=== PATIENT | male | born 1960 | race Caucasian/White ===

== ENCOUNTER 2019-10-10 10:34 | Outpatient (CLI) | payer MEDICARE, OTHER, SELFPAY ==
[2019-10-10 12:03] LABS: Hepatitis B Surface Antigen Negative (Negative)
[2019-10-10 12:20] LABS: Hepatitis B Surface Anti Res Negative; Hepatitis C Virus Antibody Negative (Negative)
[2019-10-11 17:24] LABS: Hepatitis B DNA PCR <1.00 Log IU/mL; Hepatitis B DNA PCR <10 IU/mL
[2019-10-11 18:47] LABS: Hepatitis C RNA, Quant PCR <15 IU/mL
[2019-10-12 02:47] LABS: Hepatitis B Core Ab Total Nonreactive (Nonreactive)
[2019-10-13 11:58] LABS: NIL 0.02 IU/mL; Quantiferon TB Plus, 1T NEGATIVE (NEGATIVE)
== END 2019-10-10 10:35 | disposition home or self-care (01) ==
LOC: ANHLAB 10:41
PROVIDERS: Visit Provider Internal Medicine Rheumatology
DX: Z11.59 Encounter for screening for other viral diseases (principal)
CPT/HCPCS: 36415; 86480; 86704; 86706; 86803; 87340; 87517; 87522

== ENCOUNTER 2019-10-26 12:22 | Outpatient (RCR) | payer MEDICARE, OTHER, SELFPAY ==
[2019-10-26 13:22] LABS: Erythrocyte Sedimentation Rate > 140 mm/hr (0-20)
[2019-10-26 13:23] LABS: Hemoglobin 14.4 g/dL (14.0-18.0); Mean Corpuscular HGB Conc 32.7 g/dl (32-36); Mean Corpuscular Volume 88.5 fl (80-100); Mean Platelet Volume 10.5 fl (7.4-10.4); Platelet Count Result 234 k/mm3 (150-375); Red Blood Count 4.97 M/mm3 (4.6-6.20); Red Cell Distribution Width 13.2 % (11.5-14.5); White Blood Count 4.5 K/mm3 (4.5-10.0)
[2019-10-26 13:30] LABS: Alanine Aminotransferase 37 U/L (4-50); Albumin Level 4.1 g/dL (3.5-5.1); Alkaline Phosphatase 105 U/L (38-126); Aspartate Amino Transferase 44 U/L (17-59); Bilirubin,Total 0.3 mg/dL (0.2-1.3); Blood Urea Nitrogen 18 mg/dL (9-20); CRP < 0.5 mg/dL (<1.0); Calcium 9.6 mg/dL (8.4-10.2); Carbon Dioxide 28 mmol/L (22-30); Chloride 102 mmol/L (98-107); Estimated Glomerular Filt Rate > 60; Glucose 90 mg/dL (75-110); Potassium 4.4 mmol/L (3.4-5.0); Sodium 139 mmol/L (137-145)
[2019-10-26 13:36] LABS: Complement C3 116 mg/dL (88-165)
[2019-10-29 10:29] LABS: Complement Total CH50 >60 U/mL (31-60)
[2019-10-31 20:27] LABS: SS-A <1.0; SS-B <1.0
[2019-11-02 02:21] LABS: Cryoglobulin, QL Negative (Negative)
== END 2020-01-24 23:59 | disposition home or self-care (01) ==
LOC: ANHLAB 12:22
PROVIDERS: Visit Provider Internal Medicine Rheumatology
DX: Z51.81 Encounter for therapeutic drug level monitoring (principal); I77.6 Arteritis, unspecified; M35.00 Sjogren syndrome, unspecified; Z79.899 Other long term (current) drug therapy
CPT/HCPCS: 36415; 80048; 80076; 82595; 85027; 85652; 86140; 86160; 86162; 86235

== ENCOUNTER 2020-05-14 08:45 | Emergency (ER) | payer MEDICARE, OTHER, SELFPAY ==
--- NOTE | ~2020-05-14 | XR_ITS ---
EXAMINATION: XR ankle RT min 3V DATE: 05/14/2020 09:17 INDICATION: Right ankle swelling 10 days post injury TECHNIQUE: Anteroposterior, oblique, mortise, and lateral views of the right ankle were obtained. COMPARISON: None. FINDINGS: Alignment is normal with congruent ankle mortise. No acute fracture. Tiny corticated heterotopic ossi tucker near the tip of the medial malleolus likely sequela of old trauma. Mild anterior tibiotalar joint space narrowing on the lateral projection. There are some caudal angulation on the AP projection whi ch exaggerates the relative widening of the posterior joint space. Additional mild osteoarthritis at the calcaneocuboid joint. Small plantar calcaneal spur. No ankle joint effusion. Diffuse soft tissue swelling about the ankle. IMPRESSION: 1. Mild osteoarthritis at the tibiotalar and calcaneocuboid joints. No acute osseous abnormality. Reviewed, dictated and finalized at location A. IMPRESSION: 1. Mild osteoarthritis at the tibiotalar and calcaneocuboid joints. No acute os seous abnormality.
[2020-05-14 08:57] VITALS: BP 148/94; PULSE 99; RESP 16; TEMP 37.2; O2SAT 99
--- NOTE | 2020-05-14 08:58 | ED.GENADULT ---
HPI - General Adult General Chief complaint: Extremity Injury, Lower Stated complaint: right ankle injury Time Seen by Provider: 05/14/20 08:59 Source: patient Mode of arrival: ambulatory Limitations: no limitations History of Present Illness HPI narrative: 59-year-old male patient presents to the [facility] with complaints of right ankle pain x1-1/2 weeks. Patient states he did fall about a week and a half ago and did injure his right ankle. Patient states he is supposed to be having spinal surgery in the next couple weeks and he does have chronic numbness and decreased feeling to bilateral lower legs from the waist down. Patient states that he was concerned because he noticed some bruising to his right foot along with some swelling to the right ankle and when to come and get it checked out today. Patient states he has elevated a couple times and use ice but denies taking anything for pain specifically for that. Related Data Home Medications Medication Instructions Recorded Confirmed baclofen 10 mg PO DAILY 05/14/20 05/14/20 gabapentin 600 mg PO DAILY 05/14/20 05/14/20 meloxicam 15 mg PO DIRECTED 05/14/20 05/14/20 mupirocin 2 % TOPICAL BID 05/14/20 05/14/20 omeprazole 40 mg PO DAILY 05/14/20 05/14/20 tofacitinib [Xeljanz XR] 11 mg PO DIRECTED 05/14/20 05/14/20 Allergies Allergy/AdvReac Type Severity Reaction Status Date / Time codeine AdvReac Mild MAKES HIM Verified 11/04/19 10:22 LOOPY Review of Systems Review of Systems: Narrative: CONSTITUTIONAL: Denies fever, chills, or sweats. EYES: Denies visual changes, redness, or discharge. ENT: Denies rhinorrhea, congestion, sore throat, or otalgia. CARDIOVASCULAR: Denies chest pain, palpitations, or edema. RESPIRATORY: Denies cough or dyspnea. GASTROINTESTINAL: Denies abdominal pain, nausea, vomiting, or diarrhea. GENITOURINARY: Denies dysuria or hematuria. SKIN: Denies rash or itching. MUSCULOSKELETAL: Denies back pain, joint pain, or myalgia. Positive right ankle swelling and bruising NEUROLOGIC: Denies headache, numbness, or weakness. PSYCHIATRIC: Denies anxiety or depression. [facility] Past Medical History Medical History Arthritis GERD (gastroesophageal reflux disease) Rectal polyp Surgical History Surgical History H/O repair of left rotator cuff H/O Spinal surgery History of left knee replacement Social History Social History Smoking status: Former smoker Tobacco type: cigarettes Comments At the time of my signature I agree with nursing past medical history, surgical, social, and family history. There is no relevant family history pertinent to the presenting complaint. Exam Narrative: Exam Narrative: GENERAL: Well-appearing, well-nourished, and in no acute distress. HEAD: Normocephalic, atraumatic. EYES: PERRLA and EOMI. ENT: Nares clear, no rhinorrhea or epistaxis. Mucous membranes moist. NECK: Supple. No lymphadenopathy CHEST: Clear to auscultation. No respiratory distress. HEART: Regular rate and rhythm. No murmur heard. Normal peripheral pulses. ABDOMEN: Soft, nontender, nondistended, normal active bowel sounds. EXTREMITIES: Patient is able to bear weight and ambulate without pain. The R ankle is without obvious asymmetry or deformity when compared to the L ankle. Patient has decreased flex/extend, invert/nel noted to the right ankle but states that he does not have very good control of the right ankle and that this is not necessarily new. No obvious surface trauma, there is a little bit of ecchymosis noted to the lateral foot that appears to be healing well, soft tissue swelling noted to the right foot and ankle as compared to the left foot. No bony tenderness to palpation over the medial or lateral malleolus. Anterior talofibular ligament, posterior talofibular ligament, calcane
== END 2020-05-14 09:43 | disposition home or self-care (01) ==
PROVIDERS: Emergency Provider Nurse Practitioner Family; PCP Family Medicine
DX: S93.401A Sprain of unspecified ligament of right ankle, initial encounter (principal); W19.XXXA Unspecified fall, initial encounter; M19.90 Unspecified osteoarthritis, unspecified site; K21.9 Gastro-esophageal reflux disease without esophagitis; Z87.891 Personal history of nicotine dependence; Z96.652 Presence of left artificial knee joint
CPT/HCPCS: 73610; 99213; G0463

== ENCOUNTER 2020-09-24 10:50 | Outpatient (RCR) | payer MEDICARE, OTHER, SELFPAY ==
[2020-09-24 11:45] LABS: Basophils Percent Auto 0.4 % (0.2-1.2); Eosinophils Absolute Auto 0.1 K/mm3 (0-0.3); Eosinophils Percent Auto 1.4 % (0-4.4); Hematocrit 36.9 % (42.0-52.0); Hemoglobin 11.5 g/dL (14.0-18.0); Immature Granulocyte Absolute 0.03 K/mm3 (0.00-0.031); Immature Granulocyte Percent A 0.6 % (0-0.5); Lymphocytes Absolute Auto 1.41 K/mm3 (0.9-3.2); Lymphocytes Percent Auto 28.7 % (18.3-44.2); Mean Corpuscular HGB Conc 31.2 g/dl (32-36); Mean Corpuscular Hemoglobin 25.3 pg (26-34); Mean Corpuscular Volume 81.3 fl (80-100); Mean Platelet Volume 10.1 fl (7.4-10.4); Monocytes Absolute Auto 0.4 K/mm3 (0.1-0.6); Monocytes Percent Auto 8.5 % (2.6-8.5); Neutrophils Percent Auto 60.4 % (45.5-73.1); Platelet Count Result 321 k/mm3 (150-375); Red Blood Count 4.54 M/mm3 (4.6-6.20); Red Cell Distribution Width 16.5 % (11.5-14.5); White Blood Count 4.9 K/mm3 (4.5-10.0)
[2020-09-24 11:50] LABS: Alanine Aminotransferase 22 U/L (4-50); Albumin Level 4.4 g/dL (3.5-5.1); Alkaline Phosphatase 132 U/L (38-126); Anion Gap 7 mmol/L (8-16); Aspartate Amino Transferase 31 U/L (17-59); Bilirubin,Total 0.2 mg/dL (0.2-1.3); Blood Urea Nitrogen 21 mg/dL (9-20); Calcium 9.4 mg/dL (8.4-10.2); Carbon Dioxide 29 mmol/L (22-30); Chloride 104 mmol/L (98-107); Estimated Glomerular Filt Rate > 60; Glucose 98 mg/dL (75-110); Potassium 4.8 mmol/L (3.4-5.0); Sodium 140 mmol/L (137-145)
== END 2020-12-23 23:59 | disposition home or self-care (01) ==
LOC: ANHLAB 10:50
PROVIDERS: PCP Family Medicine; Visit Provider Internal Medicine Rheumatology
DX: Z51.81 Encounter for therapeutic drug level monitoring (principal); Z79.899 Other long term (current) drug therapy
CPT/HCPCS: 36415; 80048; 80076; 85025

== ENCOUNTER 2021-01-22 08:02 | Outpatient (RCR) | payer MEDICARE, OTHER, SELFPAY ==
--- NOTE | ~2021-01-22 | XR_ITS ---
EXAMINATION: XR wrist LT 2V DATE: 01/22/2021 08:44 INDICATION: Multiple joint pain. TECHNIQUE: 2 views of left wrist were obtained. COMPARISON: None. FINDINGS: Bone alignment is normal. No fracture. There is moderate osteoarthritis of distal radioulna r joint. There is severe osteoarthritis of radiolunate joint. 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 There is mild osteoarthritis of triscaphe joint, r adiocarpal joint, and first carpometacarpal joint. IMPRESSION: 1. Polyarticular osteoarthritis. Reviewed, dictated and finalized at location A.
--- NOTE | ~2021-01-22 | XR_ITS ---
EXAMINATION: XR hand LT 2V DATE: 01/22/2021 08:45 INDICATION: Multiple joint pain. TECHNIQUE: 2 views of left hand were obtained. COMPARISON: None. FINDINGS: Bone alignment is normal. No fracture. There is moderate osteoarthritis of distal radioulna r joint. There is degenerative cystic change in distal ulna, consistent with ulnolunate impaction syn drome. There is severe osteoarthritis of radiolunate joint and mild osteoarthritis of radioscaphoid j oint, triscaphe joint, and first carpometacarpal joint. There is severe osteoarthritis of second and third metacarpophalangeal joints and mild osteoarthritis of fourth metacarpophalangeal joint and some of the interphalangeal joints. There is moderate osteoarthritis of first interphalangeal joint and s econd and third distal interphalangeal joints. IMPRESSION: 1. Polyarticular osteoarthritis. Reviewed, dictated and finalized at location A.
--- NOTE | ~2021-01-22 | XR_ITS ---
EXAMINATION: XR wrist RT 2V, XR hand RT 2V EXAM DATE: 01/22/2021 08:44 INDICATION: No known recent injury provided at this time. Pain of the right wrist, hand. Chronic mult i joint pain. TECHNIQUE: Frontal and lateral projections of the right hand. Frontal and lateral projections right wrist. Comparison is made to prior examination from 02/01/2016. 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 There is severe arthritis at the 4th metacarpophalangeal joint, likely secondary to prior injury, inf ection, avascular necrosis or other insult given that the other MCP joints are normal. There is moderate 5th distal interphalangeal, otherwise mild polyarticular interphalangeal primary os teoarthritis. Some subchondral sclerosis at the scapholunate articulation, but no widening to suggest disruption. Mild radiocarpal and 1st carpometacarpal primary osteoarthritis. There are no acute frac tures identified. IMPRESSION: Chronic right hand, wrist findings as above. Reviewed, dictated and finalized at location A. IMPRESSION: Chronic right hand, wrist findings as above.
[2021-01-22 08:24] LABS: Basophils Percent Auto 0.3 % (0.2-1.2); Eosinophils Absolute Auto 0.1 K/mm3 (0-0.3); Hematocrit 40.9 % (42.0-52.0); Hemoglobin 12.6 g/dL (14.0-18.0); Immature Granulocyte Absolute 0.07 K/mm3 (0.00-0.031); Lymphocytes Percent Auto 20.5 % (18.3-44.2); Mean Corpuscular HGB Conc 30.8 g/dl (32-36); Mean Corpuscular Hemoglobin 25.3 pg (26-34); Mean Platelet Volume 9.2 fl (7.4-10.4); Monocytes Absolute Auto 0.7 K/mm3 (0.1-0.6); Neutrophils Percent Auto 68.2 % (45.5-73.1); Platelet Count Result 308 k/mm3 (150-375); Red Blood Count 4.99 M/mm3 (4.6-6.20); Red Cell Distribution Width 16.9 % (11.5-14.5); White Blood Count 7.3 K/mm3 (4.5-10.0)
[2021-01-22 08:36] LABS: Alanine Aminotransferase 19 U/L (4-50); Albumin Level 4.3 g/dL (3.5-5.1); Alkaline Phosphatase 118 U/L (38-126); Anion Gap 4 mmol/L (8-16); Aspartate Amino Transferase 26 U/L (17-59); Bilirubin,Total 0.2 mg/dL (0.2-1.3); Blood Urea Nitrogen 22 mg/dL (9-20); Calcium 9.2 mg/dL (8.4-10.2); Carbon Dioxide 34 mmol/L (22-30); Chloride 102 mmol/L (98-107); Estimated Glomerular Filt Rate > 60; Glucose 96 mg/dL (75-110); Potassium 4.7 mmol/L (3.4-5.0); Sodium 140 mmol/L (137-145)
== END 2021-04-22 23:59 | disposition home or self-care (01) ==
LOC: ANHLAB 08:02
PROVIDERS: PCP Family Medicine; Visit Provider Internal Medicine Rheumatology
DX: Z51.81 Encounter for therapeutic drug level monitoring (principal); M15.9 Polyosteoarthritis, unspecified; Z79.899 Other long term (current) drug therapy
CPT/HCPCS: 36415; 73100; 73120; 80048; 80076; 85025

== ENCOUNTER 2021-02-14 08:13 | Outpatient (CLI) | payer MEDICARE, OTHER, SELFPAY ==
[2021-02-14 08:41] LABS: Basophils Percent Auto 0.5 % (0.2-1.2); Eosinophils Absolute Auto 0.1 K/mm3 (0-0.3); Eosinophils Percent Auto 1.2 % (0-4.4); Hematocrit 40.6 % (42.0-52.0); Hemoglobin 12.7 g/dL (14.0-18.0); Immature Granulocyte Absolute 0.06 K/mm3 (0.00-0.031); Lymphocytes Absolute Auto 1.63 K/mm3 (0.9-3.2); Mean Corpuscular HGB Conc 31.3 g/dl (32-36); Mean Corpuscular Hemoglobin 25.8 pg (26-34); Mean Corpuscular Volume 82.4 fl (80-100); Mean Platelet Volume 9.3 fl (7.4-10.4); Monocytes Absolute Auto 0.6 K/mm3 (0.1-0.6); Monocytes Percent Auto 10.7 % (2.6-8.5); Neutrophils Absolute Auto 3.4 K/mm3 (1.3-6.7); Neutrophils Percent Auto 58.6 % (45.5-73.1); Platelet Count Result 289 k/mm3 (150-375); Red Blood Count 4.93 M/mm3 (4.6-6.20); Red Cell Distribution Width 17.8 % (11.5-14.5); White Blood Count 5.8 K/mm3 (4.5-10.0)
[2021-02-14 09:30] LABS: Anion Gap 5 mmol/L (8-16); Aspartate Amino Transferase 28 U/L (17-59); Blood Urea Nitrogen 31 mg/dL (9-20); Calcium 9.6 mg/dL (8.4-10.2); Carbon Dioxide 31 mmol/L (22-30); Chloride 104 mmol/L (98-107); Cholesterol 260 mg/dL (0-200); Estimated Glomerular Filt Rate > 60; Glucose 88 mg/dL (75-110); HDL Direct 67 mg/dL; Sodium 140 mmol/L (137-145); Triglycerides 172 mg/dL (<150)
[2021-02-14 09:42] LABS: LDL Cholesterol Direct 145 mg/dL
[2021-02-14 10:01] LABS: Prostate Specific Antigen 2.7 ng/mL (< OR = 4.0)
== END 2021-02-14 08:14 | disposition home or self-care (01) ==
PROVIDERS: PCP Family Medicine; Visit Provider Family Medicine
DX: I10 Essential (primary) hypertension (principal); Z12.5 Encounter for screening for malignant neoplasm of prostate
CPT/HCPCS: 36415; 80048; 80061; 84153; 84450; 85025; G0103

== ENCOUNTER 2021-08-29 07:57 | Outpatient (CLI) | payer MEDICARE, OTHER, SELFPAY ==
[2021-08-29 08:30] LABS: Hematocrit 38.4 % (42.0-52.0); Hemoglobin 11.4 g/dL (14.0-18.0); Mean Corpuscular HGB Conc 29.7 g/dl (32-36); Mean Corpuscular Hemoglobin 23.8 pg (26-34); Mean Platelet Volume 9.8 fl (7.4-10.4); Platelet Count Result 344 k/mm3 (150-375); Red Cell Distribution Width 16.1 % (11.5-14.5); White Blood Count 6.1 K/mm3 (4.5-10.0)
== END 2021-08-29 07:58 | disposition home or self-care (01) ==
LOC: ANHLAB 08:01
PROVIDERS: PCP Family Medicine; Visit Provider Family Medicine
DX: D64.9 Anemia, unspecified (principal)
CPT/HCPCS: 36415; 85027

== ENCOUNTER 2021-10-23 08:14 | Outpatient (CLI) | payer MEDICARE, OTHER, SELFPAY ==
[2021-10-23 08:45] LABS: Basophils Percent Auto 0.6 % (0.2-1.2); Eosinophils Absolute Auto 0.1 K/mm3 (0-0.3); Eosinophils Percent Auto 1.9 % (0-4.4); Hematocrit 38.4 % (42.0-52.0); Hemoglobin 11.7 g/dL (14.0-18.0); Immature Granulocyte Absolute 0.02 K/mm3 (0.00-0.031); Immature Granulocyte Percent A 0.4 % (0-0.5); Lymphocytes Absolute Auto 1.35 K/mm3 (0.9-3.2); Lymphocytes Percent Auto 25.1 % (18.3-44.2); Mean Corpuscular HGB Conc 30.5 g/dl (32-36); Mean Corpuscular Hemoglobin 23.8 pg (26-34); Mean Corpuscular Volume 78.2 fl (80-100); Monocytes Absolute Auto 0.7 K/mm3 (0.1-0.6); Monocytes Percent Auto 13.2 % (2.6-8.5); Neutrophils Absolute Auto 3.2 K/mm3 (1.3-6.7); Neutrophils Percent Auto 58.8 % (45.5-73.1); Platelet Count Result 311 k/mm3 (150-375); Red Blood Count 4.91 M/mm3 (4.6-6.20); Red Cell Distribution Width 17.3 % (11.5-14.5); White Blood Count 5.4 K/mm3 (4.5-10.0)
== END 2021-10-23 08:15 | disposition home or self-care (01) ==
PROVIDERS: PCP Family Medicine; Visit Provider Family Medicine
DX: D64.9 Anemia, unspecified (principal)
CPT/HCPCS: 36415; 85025

== ENCOUNTER 2022-01-30 01:07 | Day surgery (SDC) | payer MEDICARE, OTHER, SELFPAY ==
[2022-01-27 13:05] VITALS: BMI 34.4
--- NOTE | 2022-01-30 07:01 | P.PNAN_ITS ---
Anes - Initial Pre Proc Eval Procedure: Operation Date: 01/30/22 09:00 Proposed Procedures p Screening Colonoscopy - Drew Chapman MD Date/Time: 01/30/22 07:01 Surgeon: Drew Chapman MD Pre Op Diagnosis: family hx of colon ca Patient Data Age: 61 Gender: M Height: 1.75 m Weight: 106 kg Allergies Allergy/AdvReac Type Severity Reaction Status Date / Time codeine AdvReac Other Verified 01/30/22 08:28 Home Medications Medication Instructions Recorded Confirmed Type omeprazole 40 mg PO DAILY 05/14/20 01/27/22 History Adults Multivitamin 1 cap PO DAILY 01/27/22 01/27/22 History aspirin 81 mg PO DAILY 01/27/22 01/27/22 History docusate sodium 100 mg PO BID 01/27/22 01/27/22 History famotidine 20 mg PO DAILY 01/27/22 01/27/22 History gabapentin 300 mg PO DAILY 01/27/22 01/27/22 History [id number]-[id number] 1 tablet PO DAILY 01/27/22 01/27/22 History leflunomide 10 mg PO DAILY 01/27/22 01/27/22 History lisinopril 20 mg PO DAILY 01/27/22 01/27/22 History magnesium [magnesium gluconate] 200 mg PO DAILY 01/27/22 01/27/22 History nortriptyline 100 mg PO HS 01/27/22 01/27/22 History polyethylene glycol 3350 [Miralax] 17 g PO DAILY PRN 01/27/22 01/27/22 History potassium 99 mg PO DAILY 01/27/22 01/27/22 History prednisone 5 mg PO DAILY 01/27/22 01/27/22 History sennosides [senna] 8.6 mg PO BID 01/27/22 01/27/22 History tofacitinib [Xeljanz] 5 mg PO BID 01/27/22 01/27/22 History vitamin B complex 1 cap PO DAILY 01/27/22 01/27/22 History Patient hx anesthesia problems: none Family hx anesthesia problems: none Results Review: All pre-operative results and documents have been reviewed as part of the pre-operative evaluation. [facility] Past Medical History Medical History (Updated 01/30/22 @ 07:01 by Festus Guerra DO) Anxiety Arthritis GERD (gastroesophageal reflux disease) Hypertension Rectal polyp Rheumatoid arthritis Surgical History Surgical History H/O repair of left rotator cuff H/O Spinal surgery History of left knee replacement Social History Social History Smoking packs per day: 1 Smoking cigarettes per day: 20.0 Years smoked: 25 Smoking pack-years: 25.00 Smoking status: Former smoker Tobacco type: cigarettes Alcohol intake: never Substance use: former Substance use type: marijuana Living arrangements: with family Spiritual care concerns: No Anes - Eval Final PreProcedure Day of Procedure 01/30/22 07:01 Patient weight: obese Heart: regular rate and rhythm Lungs: clear to auscultation and normal air movement Airway: Mallampati scale class II Neurological: alert and oriented Last oral intake: >/= 8 hours ASA classification: III Emergent: no Anesthetic plan: proceed Anesthesia type and monitoring: general GIVS and standard monitoring Results Review: All pre-operative results and documents have been reviewed as part of the pre-operative evaluation. Informed Consent: The patient's anesthetic plan and its attendant risks and benefits were discussed with the patient/family/POA. Questions were solicited and answers provided to the satisfaction of the patient/family/POA.
[2022-01-30 08:32] VITALS: BP 142/90; PULSE 94; RESP 20; TEMP 36.4; O2SAT 98
[2022-01-30] MEDS: LACTATED RINGERS 1,000 ML 150 ML IV CONT (08:45)
--- NOTE | 2022-01-30 09:06 | WPDGICN ---
Assessment and Plan Assessment and plan (1) Family hx of colon cancer: Code(s): Z80.0 - Family history of malignant neoplasm of digestive organs Status: Acute Assessment and Plan: Patient has family history of colon cancer in his brother. Plan is for surveillance colonoscopy now and consider this at 5 year intervals in the future. High-fiber diet is advised. GI Consult Note Consult date/time: 01/30/22 09:06 HPI: Prince Fournier is a 61 year old male Presents for screening colonoscopy. Patient's current weight appetite are normal. Family history is significant his brother had colon cancer. For this reason he presents for colonoscopy last colonoscopy 2016 was unremarkable. Patient reports several spine surgeries. For compress nerves. He has had some control issues with bowel movements. He denies any bleeding. States control has now gradually been improving. Patient presents today for screening colonoscopy. Review of Systems Review of Systems: All systems reviewed & are unremarkable except as noted in HPI and below PMFSH Past Medical History Medical History (Updated 01/30/22 @ 09:08 by Drew Chapman MD) Anxiety Arthritis GERD (gastroesophageal reflux disease) Hypertension Rectal polyp Rheumatoid arthritis Surgical History Surgical History H/O repair of left rotator cuff H/O Spinal surgery History of left knee replacement Social History Social History Smoking packs per day: 1 Smoking cigarettes per day: 20.0 Years smoked: 25 Smoking pack-years: 25.00 Smoking status: Former smoker Tobacco type: cigarettes Alcohol intake: never Substance use: former Substance use type: marijuana Living arrangements: with family Spiritual care concerns: No Meds Home Medications and Allergies Home Medications Medication Instructions Recorded Confirmed Type omeprazole 40 mg PO DAILY 05/14/20 01/27/22 History Adults Multivitamin 1 cap PO DAILY 01/27/22 01/27/22 History aspirin 81 mg PO DAILY 01/27/22 01/27/22 History docusate sodium 100 mg PO BID 01/27/22 01/27/22 History famotidine 20 mg PO DAILY 01/27/22 01/27/22 History gabapentin 300 mg PO DAILY 01/27/22 01/27/22 History gvudohjv-[id number]-[id number]-C-jos-bosw 1 tablet PO DAILY 01/27/22 01/27/22 History leflunomide 10 mg PO DAILY 01/27/22 01/27/22 History lisinopril 20 mg PO DAILY 01/27/22 01/27/22 History magnesium [magnesium gluconate] 200 mg PO DAILY 01/27/22 01/27/22 History nortriptyline 100 mg PO HS 01/27/22 01/27/22 History polyethylene glycol 3350 [Miralax] 17 g PO DAILY PRN 01/27/22 01/27/22 History potassium 99 mg PO DAILY 01/27/22 01/27/22 History prednisone 5 mg PO DAILY 01/27/22 01/27/22 History sennosides [senna] 8.6 mg PO BID 01/27/22 01/27/22 History tofacitinib [Xeljanz] 5 mg PO BID 01/27/22 01/27/22 History vitamin B complex 1 cap PO DAILY 01/27/22 01/27/22 History Allergies Allergy/AdvReac Type Severity Reaction Status Date / Time codeine AdvReac Other Verified 01/30/22 08:28 Vital Signs Vital Signs - 24 hr 01/30/22 08:32 Temperature 97.6 F Pulse Rate 94 Respiratory Rate 20 Blood Pressure 142/90 H Pulse Oximetry 98 Exam Narrative: Physical exam reveals patient be alert. Vital signs stable. HEENT exam is unremarkable. Patient is anicteric. Lungs are clear to auscultation and percussion. Heart is without murmur or extra sounds. Abdomen bowel sounds are present soft nontender with no organomegaly. Digital external rectal exam is normal.
[2022-01-30 09:29] VITALS: BP 114/68; PULSE 86; RESP 26; O2SAT 96
[2022-01-30 09:39] VITALS: BP 120/87; PULSE 85; RESP 17; O2SAT 97
[2022-01-30 09:49] VITALS: BP 123/84; PULSE 84; RESP 18; O2SAT 96
== END 2022-01-30 09:58 | disposition home or self-care (01) ==
PROVIDERS: PCP Family Medicine; Visit Provider Internal Medicine Gastroenterology
PROC: 0DJD8ZZ Inspection of Lower Intestinal Tract, Via Natural or Artificial Opening Endoscopic (ICD-10-PCS; CPT 45378; principal; 2022-01-30 09:00)
DX: Z12.11 Encounter for screening for malignant neoplasm of colon (principal); K64.8 Other hemorrhoids; K57.30 Diverticulosis of large intestine without perforation or abscess without bleeding; Z80.0 Family history of malignant neoplasm of digestive organs; I10 Essential (primary) hypertension; K21.9 Gastro-esophageal reflux disease without esophagitis; M06.9 Rheumatoid arthritis, unspecified; F41.9 Anxiety disorder, unspecified; Z87.891 Personal history of nicotine dependence; Z79.82 Long term (current) use of aspirin; E66.9 Obesity, unspecified; Z68.34 Body mass index [BMI] 34.0-34.9, adult
CPT/HCPCS: G0105; J2704; J7120

== ENCOUNTER 2022-03-07 09:04 | Outpatient (CLI) | payer MEDICARE, OTHER, SELFPAY ==
[2022-03-07 09:48] LABS: Aspartate Amino Transferase 26 U/L (17-59)
== END 2022-03-07 09:05 | disposition home or self-care (01) ==
PROVIDERS: PCP Family Medicine; Visit Provider Family Medicine
DX: E78.5 Hyperlipidemia, unspecified (principal)
CPT/HCPCS: 36415; 84450

== ENCOUNTER 2022-04-18 07:45 | Outpatient (CLI) | payer MEDICARE, OTHER, SELFPAY ==
[2022-04-18 09:04] LABS: Aspartate Amino Transferase 30 U/L (17-59); Cholesterol 182 mg/dL (0-200); HDL Direct 61 mg/dL; Triglycerides 124 mg/dL (<150)
[2022-04-18 09:16] LABS: LDL Cholesterol Direct 87 mg/dL
== END 2022-04-18 07:46 | disposition home or self-care (01) ==
PROVIDERS: PCP Family Medicine; Visit Provider Family Medicine
DX: E78.5 Hyperlipidemia, unspecified (principal)
CPT/HCPCS: 36415; 80061; 84450

== ENCOUNTER 2022-07-25 19:46 | Emergency (ER) | payer MEDICARE, OTHER, SELFPAY ==
--- NOTE | ~2022-07-25 | XR_ITS ---
EXAMINATION: XR toe 1st LT min 2V DATE: 07/25/2022 20:17 INDICATION: Left great toe pain. TECHNIQUE: 3 views of left great toe were obtained. COMPARISON: None. FINDINGS: Bone alignment is normal. There is a comminuted fracture of first distal phalanx. The main distal fracture fragment demonstrates 1 mm dorsal displacement. There is mild osteoarthritis of first metatarsophalangeal joint. There is soft tissue swelling of the great toe. There is ankylosis of sec ond proximal interphalangeal joint. There is severe osteoarthritis of second metatarsophalangeal join t. IMPRESSION: 1. Comminuted fracture of first distal phalanx. Reviewed, dictated and finalized at location A.
--- NOTE | 2022-07-25 19:54 | ED.LOWEXIN ---
HPI - Extremity Injury (Lower) General Chief Complaint: Extremity Injury, Lower Stated Complaint: left foot 1digit toe Time Seen by Provider: 07/25/22 20:00 Source: patient and RN notes reviewed Mode of arrival: ambulatory Limitations: no limitations History of Present Illness HPI Narrative: 61-year-old male presents concern for injury of the first digit of his left foot. He reports he does not have feeling in his toes due to spinal surgery. He reports this morning he dropped a board on the foot, he did not take his shoe off and look at the foot. He reports tonight when he took his shoe off the foot was very bruised and had a large blood blister. Patient reports at baseline he cannot move the digits of the left foot well due to previous surgeries. MD complaint: foot injury Related Data Home Medications Medication Instructions Recorded Confirmed adalimumab 40 mg/0.4 mL 40 mg subcut DAILY 07/25/22 07/25/22 subcutaneous syringe kit (Florentinoira(CF)) atorvastatin 10 mg tablet 10 mg PO DAILY 07/25/22 07/25/22 gabapentin 300 mg capsule 300 mg PO DIRECTED 07/25/22 07/25/22 leflunomide 10 mg tablet 10 mg PO DIRECTED 07/25/22 07/25/22 leflunomide 20 mg tablet 20 mg PO DIRECTED 07/25/22 07/25/22 lisinopril 20 mg tablet 20 mg PO DIRECTED 07/25/22 07/25/22 nortriptyline 50 mg capsule 50 mg PO DAILY 07/25/22 07/25/22 omeprazole 40 mg capsule,delayed 40 mg PO DAILY 07/25/22 07/25/22 release prednisone 5 mg tablet 5 mg PO DAILY 07/25/22 07/25/22 Allergies Allergy/AdvReac Type Severity Reaction Status Date / Time codeine AdvReac Other Verified 07/25/22 19:59 Review of Systems Review of Systems: CONSTITUTIONAL: Denies malaise, chills, sweats, or fever. SKIN: Denies rash or itching, open skin, laceration, abrasion, redness, warmth, swelling. MUSCULOSKELETAL: Reports pain, bruising to the first digit of the left foot with a very large blood filled bulla NEUROLOGIC: Denies numbness, weakness All systems reviewed & are unremarkable except as noted in HPI and below PMFSH Past Medical History Medical History (Updated 07/25/22 @ 20:18 by Jolene Mckeon NP) Anxiety Arthritis GERD (gastroesophageal reflux disease) Hypertension Rectal polyp Rheumatoid arthritis Surgical History Surgical History H/O repair of left rotator cuff H/O Spinal surgery History of left knee replacement Social History Social History Smoking packs per day: 1 Smoking cigarettes per day: 20.0 Years smoked: 25 Smoking pack-years: 25.00 Smoking status: Former smoker Tobacco type: cigarettes Alcohol intake: never Substance use: former Substance use type: marijuana Spiritual care concerns: No Comments At time of signature, agree with nursing past medical, surgical, social and family history. There is no relevant family history pertinent to the presenting complaint Exam Narrative: GENERAL: Well-appearing, well-nourished, and in no acute distress. HEAD: Normocephalic, atraumatic. EYES: PERRLA, conjunctivae clear ENT: Mucous membranes moist. NECK: Supple. No lymphadenopathy CHEST: Clear to auscultation. No respiratory distress. HEART: Regular rate and rhythm. SKIN: Warm, dry. Approximately 2.5cm wide x 1 cm tall bulla filled with dark fluid noted at the base of the nailbed of the first toe of the left foot MUSC: Dorsal aspect of the first digit of left foot ecchymotic NEURO: Alert and oriented x3. PSYCH: Normal mood and affect Course Course Emergency Course: Discussed benefits versus risks of draining the bulla. Bulla became larger during the visit, indicating continues to bleed. I felt that it was beneficial to drain it in order to be able to apply pressure to stop bleeding. Area was cleansed with Betadine, needle drainage used in a sterile fashion to withdraw 4 mL of sanguinous material. Pressure dressin
[2022-07-25 19:59] VITALS: BP 154/97; PULSE 88; RESP 20; TEMP 36.5; O2SAT 100
[2022-07-25 20:03] VITALS: BP 154/97; PULSE 88; RESP 20; TEMP 36.5; O2SAT 100
== END 2022-07-25 20:30 | disposition home or self-care (01) ==
PROVIDERS: Emergency Provider Nurse Practitioner; PCP Family Medicine
DX: S92.422A Displaced fracture of distal phalanx of left great toe, initial encounter for closed fracture (principal); W20.8XXA Other cause of strike by thrown, projected or falling object, initial encounter; K21.9 Gastro-esophageal reflux disease without esophagitis; I10 Essential (primary) hypertension; M06.9 Rheumatoid arthritis, unspecified; Z87.891 Personal history of nicotine dependence
CPT/HCPCS: 73660; 99213; G0463

== ENCOUNTER 2023-09-02 08:41 | Outpatient (CLI) | payer MEDICARE, OTHER, SELFPAY ==
[2023-09-02 09:35] LABS: Cholesterol 197 mg/dL (0-200); HDL Direct 58 mg/dL; Triglycerides 149 mg/dL (<150)
[2023-09-02 09:50] LABS: LDL Cholesterol Direct 99 mg/dL
[2023-09-02 10:08] LABS: Prostate Specific Antigen 1.6 ng/mL (< OR = 4.0)
== END 2023-09-02 08:42 | disposition home or self-care (01) ==
LOC: ANHLAB 08:44
PROVIDERS: PCP Emergency Medicine; Visit Provider Emergency Medicine
DX: E78.5 Hyperlipidemia, unspecified (principal); Z12.5 Encounter for screening for malignant neoplasm of prostate
CPT/HCPCS: 36415; 80061; 84153; G0103

== ENCOUNTER 2024-03-18 07:55 | Outpatient (CLI) | payer MEDICARE, OTHER, SELFPAY ==
--- NOTE | ~2024-03-18 | CT_ITS ---
CT Scan of the Chest without Contrast: Clinical Indication: Lung cancer screening, nicotine dependence Technique: Contiguous sections were acquired throughout the chest without intravenous contrast. Dose reduction technique was used on this scan by utilizing automated exposure control and iterative recon struction technique. The dose-length product (DLP) was 181.64 mGy-cm. Findings: There is no evidence of any significant mediastinal, hilar or axillary lymphadenopathy. Coronary johnnie ry calcifications are present. There is no evidence of pleural or pericardial effusion. 2 mm pleural-based nodule noted the right lower lobe. Images through the upper abdomen reveal no abnormalities. There is extensive thoracolumbar spinal fix ation. Impression: Lung RADS 2: Benign appearance. 12 month follow-up screening CT advised. Reviewed, dictated and finalized at [facility]. Impression: Lung RADS 2: Benign appearance. 12 month follow-up screening CT advised.
[2024-03-18 10:25] LABS: Folic Acid > 20.0 ng/mL (2.76->20)
== END 2024-03-18 07:56 | disposition home or self-care (01) ==
PROVIDERS: PCP Emergency Medicine; Visit Provider Emergency Medicine
DX: Z12.2 Encounter for screening for malignant neoplasm of respiratory organs (principal); Z79.899 Other long term (current) drug therapy; Z87.891 Personal history of nicotine dependence
CPT/HCPCS: 36415; 71271; 82607; 82746